=== PATIENT | male | born 1950 | race Asian ===

== ENCOUNTER 2017-08-06 15:09 | Outpatient (CLI) | payer MEDICARE, BC | END 2017-08-06 17:00 | disposition home or self-care (01) | LOC: HPC 15:09 | DX: C22.0 Liver cell carcinoma (principal); B19.20 Unspecified viral hepatitis C without hepatic coma | CPT/HCPCS: G0463 ==

== ENCOUNTER 2017-10-08 10:39 | Outpatient (CLI) | payer MEDICARE, BC | END 2017-10-08 15:52 | disposition home or self-care (01) | LOC: HPC 10:39 | DX: C22.0 Liver cell carcinoma (principal); B19.10 Unspecified viral hepatitis B without hepatic coma; K74.60 Unspecified cirrhosis of liver; Z87.891 Personal history of nicotine dependence; Z80.0 Family history of malignant neoplasm of digestive organs; Z80.8 Family history of malignant neoplasm of other organs or systems; I81 Portal vein thrombosis | CPT/HCPCS: G0463 ==

== ENCOUNTER 2017-11-27 11:31 | Day surgery (SDC) | payer MEDICARE, BC ==
[2017-11-27] MEDS ORDERED: LIDOCAINE 2% (SDV) 5 ML INJ (13:28)
[2017-11-27] MEDS ORDERED: PROPOFOL 40 ML (13:28)
== END 2017-11-27 18:24 | disposition home or self-care (01) ==
LOC: GIL 11:31
DX: I85.00 Esophageal varices without bleeding (principal); K29.60 Other gastritis without bleeding; J44.9 Chronic obstructive pulmonary disease, unspecified; N18.9 Chronic kidney disease, unspecified; C22.8 Malignant neoplasm of liver, primary, unspecified as to type
CPT/HCPCS: 43239